=== PATIENT | male | born 1965 | race Caucasian/White ===

== ENCOUNTER → 2018-10-23 | Outpatient (CLI) | payer OTHER ==
[~2018-10-23] MED LIST: 0.910DIS20 IJ; AMLO-125 PO; ATEN-1 PO; ATOR10TA65 PO; LACT1CAP6 PO; LISI-362 PO; MULT-28 PO; MUP2T TOP; OMEP-218 PO; VALS1TAB96 PO; [UNRECOGNIZED DRUG - CODE] IV; [UNRECOGNIZED DRUG - CODE] IVP
--- NOTE | 2018-10-23 15:28 | RADIOLOGY IMAGING REPORT ---
FACILITY: [facility] [place] PATIENT NAME: Jos Haynes : 1965 MR: [id number] V: [id number] EXAM DATE: ORDERING PHYSICIAN: MATA THORNE TECHNOLOGIST: Location: [facility] Patient: Jos Haynes : 1965 Visit/Account:[id number] Date of Sevice: 10/23/2018 Exam type: 3 views right foot History: Heel pain Comparison: None. Findings: There is no acute fracture of the right foot. 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 Calcaneal heel spur is also noted. IMPRESSION: 1. No acute fracture the right foot. 2. Prominent calcaneal heel spur. 3. 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 Report Dictated By: Julian Sargent MD at 10/23/2018 3:19 PM Report E-Signed By: Julian Sargent MD at 10/23/2018 3:23 PM WSN:[id number]
== END ==
LOC: RAD 14:39
PROVIDERS: ATTEND Nurse Practitioner Family
DX: M77.31 Calcaneal spur, right foot (principal)